=== PATIENT | female | born 1945 | race Caucasian/White ===

== ENCOUNTER → 2017-06-12 | Outpatient (CLI) | payer OTHER ==
[~2017-06-12] MED LIST: AMLODIPINE5 MG PO; ELIMITE5% T; GLIPIZIDE5 MG PO; LIPITOR40 MG PO; NAPROSYN500 MG PO; NICODERM14 MG/24 H T; REGLAN5 MG PO; WELLBUTRIN XL300 MG PO; WELLBUTRIN75 MG PO; [UNRECOGNIZED DRUG - OTHER] T
== END | disposition home or self-care (01) ==
LOC: CT 12:32
DX: J44.9 Chronic obstructive pulmonary disease, unspecified (principal); J43.8 Other emphysema; J84.10 Pulmonary fibrosis, unspecified; I70.8 Atherosclerosis of other arteries; I25.10 Atherosclerotic heart disease of native coronary artery without angina pectoris

== ENCOUNTER → 2017-09-09 | Outpatient (CLI) | payer OTHER ==
[2017-09-09 09:47] LABS: BASO # 0.1 10*3/uL (0.0-0.1); BASO % 1.1 % (0.0-1.0); EOS # 0.9 10*3/uL (0.0-0.4); EOS % 7.7 % (1.0-4.0); HEMATOCRIT 49.4 % (37.0-47.0); HEMOGLOBIN 16.9 g/dl (12.0-16.0); LYMPH # 2.8 10*3/uL (1.3-4.4); LYMPH % 24.9 % (27.0-41.0); MEAN CELL VOLUME 93.6 fl (81.0-99.0); MEAN CORPUSCULAR HGB CONC 34.2 g/dl (33.0-37.0); MEAN PLATELET VOLUME 9.9 fl (9.6-12.3); MONO # 0.4 10*3/uL (0.1-1.0); MONO % 3.4 % (3.0-9.0); NEUT % 62.5 % (47.0-73.0); PLATELET COUNT AUTOMATED 287 10*3/uL (130-400); RED BLOOD COUNT 5.28 10*6/uL (4.10-5.10); RED CELL DISTRI WIDTH 13.3 % (0-14.5); WHITE BLOOD COUNT 11.2 10*3/uL (4.8-10.8)
[2017-09-09 10:25] LABS: ALBUMIN 3.5 gm/dl (3.1-4.5); CREATININE 1.42 mg/dL (0.55-1.02); THYROXINE (T4) TOTAL 7.7 ug/dl (4.8-13.9)
[2017-09-09 10:28] LABS: THYROID STIM HORMONE (HS) 3.69 uIU/ml (0.358-4.75)
== END | disposition home or self-care (01) ==
LOC: LAB 09:20
PROVIDERS: Neuromusculoskeletal Medicine & OMM
DX: I10 Essential (primary) hypertension (principal); E11.9 Type 2 diabetes mellitus without complications; E55.9 Vitamin D deficiency, unspecified; E78.5 Hyperlipidemia, unspecified

== ENCOUNTER 2017-09-21 19:45 | Inpatient (IN) | payer OTHER ==
[~2017-09-21] VITALS: Ht 157.5 cm; Wt 63.6 kg
--- NOTE | ~2017-09-21 | EKG ---
[place], [place] ELECTROCARDIOGRAM REPORT NAME: JOCY CONTE UNIT #: [id number] ROOM: 507 DOCTOR: SOO IGLL MD,JULIETA BIRTHDATE: [birth year] DOS: 09/21/2017 The electrocardiogram done at 8:19 p.m. Normal sinus rhythm noted. Heart rate 89 beats per minute. PVCs were noted. Nonspecific ST-T changes. JULIETA VANN MD CM:EKGRPT:ELECTROCARDIOGRAM REPORT [id number] JULIETA GILL MD
--- NOTE | ~2017-09-21 | PR ---
[place], [place] PROGRESS NOTE NAME: JOCY CONTE UNIT #: [id number] ROOM: 507 DOCTOR: SOO GILL MD,JULIETA BIRTHDATE: [birth year] DOS: 09/23/2017 SUBJECTIVE: The patient was noted comfortable at this time with reduction in symptoms of shortness of breath reported. The coughing has been subsiding. There were no symptoms of chest pain or any abdominal pain. OBJECTIVE: VITAL SIGNS: For the patient which were recorded showed normal temperature, respiratory rate 20, heart rate of 103, blood pressure 134/73. Pulse oxygen saturation of the patient recorded on 6 liters nasal canula 92% saturation. HEENT: Examination shows head was atraumatic. Eyes nonicterus. NECK: Supple. CARDIOVASCULAR: S1, S2 audible. LUNGS: Noted with inspiratory crackles noted in the lungs previously. There was no wheezing heard. Breaths are noted mild to moderately decreased. ABDOMEN: Soft, nontender. IMPRESSION: 1. The patient with acute respiratory failure, superimposed with chronic hypoxic respiratory failure, still requiring oxygen supplementation up to 6 liters nasal cannula. 2. Suspicion of UIP. 3. Type 2 diabetes mellitus. PLAN OF MANAGEMENT: Continuation of bronchodilators, oxygen supplementation. Titrate oxygen to maintain a pulse oxygen saturation 92% or greater. Other supportive therapy, plan of management care. JULIETA VANN MD CM:PNTRANS [id number] JULIETA GILL MD 09/23/17 1444 interface
--- NOTE | ~2017-09-21 | PR ---
[place], [place] PROGRESS NOTE NAME: JOCY CONTE UNIT #: [id number] ROOM: 507 DOCTOR: JULIETA MESSER MD BIRTHDATE: [birth year] DOS: 09/24/2017 SUBJECTIVE: The patient was noted comfortable at this time without any acute distress at this time. She has been sitting on the bed, using oxygen supplementation with the nasal cannula for the patient, 5 or 6 liter nasal cannula at rest. She has not been reported any symptoms of hemoptysis or any chest pain. Coughing has been subsiding. Shortness breath was resolving. OBJECTIVE: VITAL SIGNS: Normal temperature, respiratory rate 20, heart rate 85, blood pressure 148/86 recorded this morning. The pulse oxygen saturation on 5 liters nasal canula 92% saturation recorded. HEAD, EYES, EARS, NOSE, AND THROAT: Examination shows head was atraumatic. Eyes nonicterus. NECK: Supple. CARDIOVASCULAR: S1, S2 audible. LUNGS: Moderate decreased breath sounds. Crackles were noted mid to lower portion of the lungs. ABDOMEN: Soft, nontender. EXTREMITIES: Without any acute edema. LABORATORY DATA: CBC today: WBC count 16.9, hemoglobin and hematocrit normal, platelet count was normal. Blood culture, no bacterial growth from the . Final results pending. IMPRESSION: Resolving acute on chronic severe hypoxic respiratory failure. The patient with pulmonary fibrosis possibility of UIP. Possible exacerbation of chronic obstructive pulmonary disease as well. PLAN OF TREATMENT: No changes from the pulmonary standpoint. Titrate oxygen and maintain saturation 92% or greater. The patient might require reassessment for the need of oxygen could be considered for home discharge if assessed by the primary care attending. [place], [place] PROGRESS NOTE NAME: DGJOCY UNIT #: [id number] ROOM: 507 DOCTOR: JULIETA MESSER MD BIRTHDATE: [birth year] JULIETA VANN MD CM:PNTRANS [phone] JULIETA GILL MD 09/24/17 1942 interface
--- NOTE | ~2017-09-21 | CON ---
[place], [place] REPORT OF CONSULTATION [id number] UNIT #: [id number] ROOM: 507 DOCTOR: JULIETA MESSER MD BIRTHDATE: [birth year] DOS: 09/22/2017 CONSULTATION REQUESTED BY: Hospitalist service. REASON FOR CONSULTATION: For assessment of increased shortness of breath. HISTORY OF PRESENT ILLNESS: This is a 71-year-old white female patient who has been managed by a laboratory inspector in [place], [place] as well as the primary care physician as well. The patient has been noted with symptoms of having increased shortness of breath for this patient as well that has been ongoing for the past 7 days. The symptom has been noted with gradual worsening in the last few days about a week or so. The symptoms are also associated with increased coughing, which has been getting worse. The cough has been noted with yellow sputum expectoration intermittently to no sputum expectoration. She did not report any symptoms of wheezing. Denies symptoms of chest pain. There were no symptoms of hemoptysis. REVIEW OF SYSTEMS: CONSTITUTIONAL: Fatigue and tiredness reported as constitutional symptoms with fever and chills at home as well for the last 2-3 days. EYES: Denies any burning, redness, discharge or diplopia. EAR, NOSE, THROAT: Denies any earache. No nasal discharge, epistaxis, or sore throat. CARDIOVASCULAR: There were no symptoms of anginal pain for this patient reported by the patient, any palpitations or edema of the extremities. GASTROINTESTINAL: Dysphagia, nausea, vomiting, diarrhea, abdominal pain, hematemesis, melena, or hematochezia. SKIN: Denies any abnormal lesions or rashes. MUSCULOSKELETAL: Without any acute deformities reported for this patient. CENTRAL NERVOUS SYSTEM: Denies any diplopia, headache or seizures. Remaining systems were reviewed. They were noted all negative. PAST MEDICAL HISTORY: 1. Known with history of longstanding chronic respiratory failure, use of oxygen supplementation 3 liter nasal cannula. 2. History of chronic obstructive pulmonary disease. 3. History of chronic kidney disease stage 3. 4. Hyperlipidemia. 5. Essential hypertension. 6. Type 2 diabetes mellitus. 7. History of depression. PAST SURGICAL HISTORY: 1. Carpet tunnel surgery. 2. Appendectomy. 3. Hysterectomy. 4. Tonsillectomy as a child. SOCIAL HISTORY: The patient stated that she is and lives at home. [place], [place] REPORT OF CONSULTATION NAME: JOCY CONTE UNIT #: [id number] ROOM: 507 DOCTOR: SOO GILL MD,JULIETA BIRTHDATE: [birth year] has been noted with tobacco use since teenager from 1-3 packs of cigarettes per day. The 3 packs of cigarettes smoked by the patient at the time of the tobacco cessation, which were done approximately in 2007. Denies any occupation related exposure to any chemicals or dust. FAMILY HISTORY: The patient's father complication related mesothelioma. Mother from complication related to the COPD. Medication for the patient to home were noted as use of amlodipine, Wellbutrin, glipizide and Elimite. DRUG ALLERGIES: RED DYE AND METALS. PHYSICAL EXAMINATION: GENERAL: This is a 71-year-old female who has been currently sitting on the bed for this patient using oxygen supplementation with a Venturi mask for this patient of 50% to maintain normal oxygen saturation 92% or greater. The patient was noted without any major distress except mild tachypnea at rest. VITAL SIGNS: Height were recorded on current admission with height of 5 feet 2 inches, weight of 140 pounds, BMI 25.6. Vital signs for the patient, which was recorded for the patient shows normal temperature. Respiration 18-22. Heart rate of 106-97. The blood pressure 128/84-133/85. Pulse oxygen saturation on admission recorded in the Emergency Room, the patient on 3 liter nasal cannula use of oxygen 75% later on placed on 100% nonrebreather mask to maintain saturation 97%. The oxygen supplementation with Venturi mask for the patient was noted as on 50% oxygen at this time as 95% saturation at rest. HEENT: Mild obesity. Head was atraumatic. Eyes nonicterus. Oral mucosa was noted a dry. Head was atraumatic. NECK: Supple. CARDIOVASCULAR: S1, S2 is audible. LUNGS: Showed noted with moderate reduction of breath sounds bilaterally. Crackles were noted in the mid and lower portion of the lungs. There was no wheezing present. ABDOMEN: Noted soft with moderate obesity. Bowel sounds present without tenderness. SKIN: Noted without any lesions or rashes. MUSCULOSKELETAL: Noted without any acute deformities. VISIBLE SKIN: No lesions or rashes. CENTRAL NERVOUS SYSTEM: Cranial nerves 2-12 intact. MUSCULOSKELETAL: Without any acute deformities. LABORATORY DATA: CBC for the patient that was done for the patient yesterday on admission, WBC count of 18.8, hemoglobin 15.3, hematocrit normal, platelet count normal. The lactic acid yesterday on admission 1.8. PT/PTT yesterday on admission normal. CMP yesterday on admission, BUN 22, creatinine 1.46. Potassium 3.4, sodium 135, total bilirubin 1.2 with normal remaining LFTs. Arterial blood gas that was just done yesterday evening, pH of 7.45, pCO2 of 30, pO2 of 55.5 on 100% nonrebreather mask. The arterial blood gas repeated again for the patient 09/21/2017, pH of 7.42, pCO2 of 31. pO2 of 87.0 on 50% Venturi mask. CMP of the patient of this morning, glucose 209, BUN 20, creatinine 1.33. CO2 of 20. The bilirubin was normal. Albumin of 2.7. CBC of this morning, WBC count 14.1, hemoglobin and hematocrit normal, platelet count normal with 97% [place], [place] REPORT OF CONSULTATION NAME: JOCY CONTE UNIT #: [id number] ROOM: 507 DOCTOR: [facility] BIRTH[facility]: [birth year] segmented neutrophils. Chest x-ray of the patient that was done yesterday, one view was reviewed for the patient shows evidence of interstitial pulmonary fibrotic changes noted in the lungs diffusely. CT scan of the chest for the patient has been done previously on 06/12/2017, was reviewed and findings were noted, combination of emphysema and strong suspicion of UIP would be considered. Paraseptal emphysema changes were also present. Some enlargement of lymph nodes would be considered in the mediastinum for the patient, but because of lack of IV contrast certainly, the finding cannot be clarified, some calcification of the lymph nodes was seen in the right hilar lymph nodes. IMPRESSION: 1. The patient was been currently admitted to the hospital noted with severe acute on chronic hypoxic respiratory failure with a history of pulmonary fibrosis and COPD. 2. Possible consideration for UIP as well. 3. History of type 2 diabetes mellitus, noted uncontrolled because of the current use of corticosteroids. 4. Superimposed infection cannot be completely excluded because of baseline pulmonary fibrotic abnormalities patient to exclude any pneumonia or other infection at the present time. PLAN OF TREATMENT: Continue the current dose of corticosteroids without any changes in the antibiotics. Oxygen supplementation to maintain a saturation of 92%, greater in case of worsening of the hypoxia certainly trial of BiPAP could be attempted. Clarify the code status for the patient as well. Continuation of the bronchodilators as previously ordered. Obtain the sputum for Gram stain and culture. All other treatment plan for the patient continued to be optimized based on the progression of the illness. Supportive plan of management and therapy. It will be interesting to get the medical record, patient from another specialist for this patient as well or other previous diagnostic workup done for the patient for this current pulmonary fibrosis. JULIETA VANN MD CM:CONSTR:REPORT OF CONSULTATION 0805 09/22/17 1276 interface
[2017-09-21 19:46] VITALS: BP 135/86
[2017-09-21 20:09] LABS: BASO # 0.1 10*3/uL (0.0-0.1); BASO % 0.6 % (0.0-1.0); EOS # 0.8 10*3/uL (0.0-0.4); EOS % 4.2 % (1.0-4.0); HEMATOCRIT 44.9 % (37.0-47.0); HEMOGLOBIN 15.3 g/dl (12.0-16.0); LYMPH % 21.2 % (27.0-41.0); MEAN CELL VOLUME 92.4 fl (81.0-99.0); MEAN CORPUSCULAR HGB 31.5 pg (27.0-31.0); MEAN CORPUSCULAR HGB CONC 34.1 g/dl (33.0-37.0); MEAN PLATELET VOLUME 10.2 fl (9.6-12.3); MONO # 0.9 10*3/uL (0.1-1.0); MONO % 4.6 % (3.0-9.0); PLATELET COUNT AUTOMATED 281 10*3/uL (130-400); RED BLOOD COUNT 4.86 10*6/uL (4.10-5.10); RED CELL DISTRI WIDTH 12.7 % (0-14.5); WHITE BLOOD COUNT 18.8 10*3/uL (4.8-10.8)
[2017-09-21 20:20] VITALS: BP 126/78
[2017-09-21 20:22] LABS: ACT PARTIAL THROMBO TIME 25.4 SECONDS (20.8-31.5); INTERNATIONAL NORM RATIO 1.1 (2.0-3.5)
[2017-09-21 20:26] LABS: ALBUMIN 3.2 gm/dl (3.1-4.5); ALKALINE PHOSPHATASE 89 U/L (45-117); BUN 22 mg/dl (7-24); CHLORIDE 100 mmol/L (98-107); CREATININE 1.46 mg/dL (0.55-1.02); LIPASE 188 U/L (73-393); POTASSIUM 3.4 mmol/L (3.5-5.1); SGOT/AST 22 IU/L (3-35); SGPT/ALT 18 U/L (12-78); SODIUM 135 mmol/L (136-145)
[2017-09-21 20:27] LABS: TROPONIN I < 0.015 ng/ml (<0.045)
[2017-09-21 20:47] VITALS: BP 125/77
[2017-09-21 20:49] LABS: ABG BASE EXCESS -1.4 mmol/L (-2.0-2.0); ABG HCO3 21.1 mmol/l (22-26); ABG O2 SATURATION 92.1 % (95-97); ARTERIAL BLOOD GAS PCO2 30.1 mmHg (35-45); ARTERIAL BLOOD GAS PH 7.458 (7.35-7.45); ARTERIAL BLOOD GAS PO2 55.5 mmHg (80-90)
[2017-09-21 21:22] VITALS: BP 133/85
[2017-09-21 22:56] LABS: ABG BASE EXCESS -2.9 mmol/L (-2.0-2.0); ABG HCO3 20.2 mmol/l (22-26); ABG O2 SATURATION 97.2 % (95-97); ARTERIAL BLOOD GAS PCO2 31.2 mmHg (35-45); ARTERIAL BLOOD GAS PH 7.425 (7.35-7.45)
[2017-09-21 23:02] VITALS: BP 138/82
[2017-09-21] MEDS ORDERED: SIMVASTATIN40 MG PO (23:42)
[2017-09-21] MEDS ORDERED: SYMB160 INH (23:42)
[2017-09-21] MEDS ORDERED: SPIRIVA RESPIMAT4 GM INH (23:42)
[2017-09-21] MEDS ORDERED: ONE DAILY1 EACH PO (23:43)
[2017-09-21] MEDS ORDERED: B12100 MC1 PO (23:43)
[2017-09-21] MEDS ORDERED: VITAMIN E100 UNI1 PO (23:44)
[2017-09-21] MEDS ORDERED: VITAMIN D31000 UNI1 PO (23:44)
[2017-09-21] MEDS ORDERED: TURMERIC538 MG PO (23:45)
[2017-09-21] MEDS ORDERED: PROVENTIL HFA6.7 GM INH (23:46)
[2017-09-22] MEDS ORDERED: VENTOLIN HFA INH (01:27)
[2017-09-22 07:05] LABS: HEMATOCRIT 39.3 % (37.0-47.0); HEMOGLOBIN 13.8 g/dl (12.0-16.0); MEAN CELL VOLUME 91.4 fl (81.0-99.0); MEAN CORPUSCULAR HGB 32.1 pg (27.0-31.0); MEAN CORPUSCULAR HGB CONC 35.1 g/dl (33.0-37.0); PLATELET COUNT AUTOMATED 251 10*3/uL (130-400); RED CELL DISTRI WIDTH 12.6 % (0-14.5); WHITE BLOOD COUNT 14.1 10*3/uL (4.8-10.8)
[2017-09-22 07:21] LABS: ALBUMIN 2.7 gm/dl (3.1-4.5); CREATININE 1.33 mg/dL (0.55-1.02); PHOSPHOROUS 2.5 mg/dL (2.5-4.9); POTASSIUM 3.8 mmol/L (3.5-5.1); TOTAL PROTEIN 8.1 gm/dL (6.4-8.2)
[2017-09-22 07:37] LABS: THYROID STIM HORMONE (HS) 0.565 uIU/ml (0.358-4.75)
[2017-09-22 07:38] LABS: PLATELET SUFFICIENCY NORMAL (NORMAL); TOTAL CELLS COUNTED 100 #CELLS
[2017-09-22 08:00] VITALS: BP 128/84
[2017-09-22 08:28] LABS: VITAMIN D, 25-HYDROXY 17.4 ng/mL (30-100)
[2017-09-22] MEDS ORDERED: BUPROPION HCL150 M2 PO (10:10)
[2017-09-22] MEDS ORDERED: MEGARED OMEGA-1 EAC1 PO (10:11)
[2017-09-22] MEDS ORDERED: TURMERIC 500 M1 EACH PO (10:12)
[2017-09-22] MEDS ORDERED: VITAMIN B121000 MC1 PO (10:13)
[2017-09-22] MEDS ORDERED: POTASSIUM99 M5 PO (10:14)
[2017-09-22] MEDS ORDERED: VITAMIN E1000 UNI1 PO (10:14)
[2017-09-22 12:00] VITALS: BP 135/80
[2017-09-22 16:06] VITALS: BP 128/76
[2017-09-22 20:24] VITALS: BP 137/89
[2017-09-23] VITALS: BP 131/60
[2017-09-23 06:17] LABS: CREATININE 1.33 mg/dL (0.55-1.02); POTASSIUM 4.2 mmol/L (3.5-5.1)
[2017-09-23 06:22] LABS: BASO % 0.2 % (0.0-1.0); HEMATOCRIT 37.4 % (37.0-47.0); HEMOGLOBIN 12.3 g/dl (12.0-16.0); LYMPH # 1.1 10*3/uL (1.3-4.4); LYMPH % 5.9 % (27.0-41.0); MEAN CORPUSCULAR HGB 31.1 pg (27.0-31.0); MEAN CORPUSCULAR HGB CONC 32.9 g/dl (33.0-37.0); MEAN PLATELET VOLUME 10.3 fl (9.6-12.3); MONO # 0.6 10*3/uL (0.1-1.0); MONO % 3.2 % (3.0-9.0); NEUT % 89.9 % (47.0-73.0); PLATELET COUNT AUTOMATED 274 10*3/uL (130-400); RED BLOOD COUNT 3.95 10*6/uL (4.10-5.10); RED CELL DISTRI WIDTH 12.8 % (0-14.5); WHITE BLOOD COUNT 17.8 10*3/uL (4.8-10.8)
[2017-09-23 06:32] LABS: MEAN CELL VOLUME 94.7 fl (81.0-99.0)
[2017-09-23 08:00] VITALS: BP 134/73
[2017-09-23 12:00] VITALS: BP 137/87
[2017-09-23 16:00] VITALS: BP 130/77
[2017-09-23 20:00] VITALS: BP 120/73
[2017-09-24] VITALS: BP 135/74
[2017-09-24 06:47] LABS: HEMATOCRIT 38.2 % (37.0-47.0); HEMOGLOBIN 13.1 g/dl (12.0-16.0); MEAN CELL VOLUME 93.2 fl (81.0-99.0); MEAN CORPUSCULAR HGB CONC 34.3 g/dl (33.0-37.0); MEAN PLATELET VOLUME 10.1 fl (9.6-12.3); PLATELET COUNT AUTOMATED 285 10*3/uL (130-400); RED CELL DISTRI WIDTH 12.9 % (0-14.5); WHITE BLOOD COUNT 16.9 10*3/uL (4.8-10.8)
[2017-09-24 07:11] LABS: PLATELET SUFFICIENCY NORMAL (NORMAL); ROULEAUX SLIGHT; TOTAL CELLS COUNTED 100 #CELLS
[2017-09-24 08:00] VITALS: BP 148/86
[2017-09-24] MEDS ORDERED: PREDNISONE10 MG PO (11:47)
[2017-09-24] MEDS ORDERED: BENZONATATE100 M1 PO (11:47)
[2017-09-24] MEDS ORDERED: LEVAQUIN250 M1 PO (11:47)
[2017-09-24 12:00] VITALS: BP 132/84
== END 2017-09-24 15:23 | disposition home or self-care (01) | DRG 871 ==
LOC: ED 19:45 → 5E 22:13 → EDHOLD 22:13 → 5E 22:32
PROVIDERS: Internal Medicine; Internal Medicine Hospice and Palliative Medicine; Nurse Practitioner Family
DX: A41.9 Sepsis, unspecified organism (principal); J18.9 Pneumonia, unspecified organism; J96.21 Acute and chronic respiratory failure with hypoxia; E43 Unspecified severe protein-calorie malnutrition; E11.65 Type 2 diabetes mellitus with hyperglycemia; E11.22 Type 2 diabetes mellitus with diabetic chronic kidney disease; E67.8 Other specified hyperalimentation; J84.10 Pulmonary fibrosis, unspecified; J44.1 Chronic obstructive pulmonary disease with (acute) exacerbation; E87.1 Hypo-osmolality and hyponatremia; J44.0 Chronic obstructive pulmonary disease with (acute) lower respiratory infection; N18.3 Chronic kidney disease, stage 3 (moderate); E87.6 Hypokalemia; F32.9 Major depressive disorder, single episode, unspecified; E78.5 Hyperlipidemia, unspecified; I12.9 Hypertensive chronic kidney disease with stage 1 through stage 4 chronic kidney disease, or unspecified chronic kidney disease; Z91.041 Radiographic dye allergy status; Z91.09 Other allergy status, other than to drugs and biological substances; Z79.899 Other long term (current) drug therapy; Z90.49 Acquired absence of other specified parts of digestive tract; Z90.710 Acquired absence of both cervix and uterus; Z87.891 Personal history of nicotine dependence; Z80.8 Family history of malignant neoplasm of other organs or systems; Z82.5 Family history of asthma and other chronic lower respiratory diseases; Z68.25 Body mass index [BMI] 25.0-25.9, adult

== ENCOUNTER 2018-01-24 10:16 | Inpatient (IN) | payer OTHER ==
[~2018-01-24] VITALS: Ht 157.5 cm; Wt 66.7 kg
--- NOTE | ~2018-01-24 | CON ---
[place], [place] REPORT OF CONSULTATION NAME: JOCY CONTE UNIT #: [id number] ROOM: [facility] DOCTOR: JULIETA MESSER MD BIRTHDATE: [birth year] DOS: 01/25/2018 PULMONARY CONSULTATION, EVALUATION AND MANAGEMENT REASON FOR CONSULTATION: Assess the patient's current hypertension, respiratory distress with acute respiratory failure and other symptoms. HISTORY OF PRESENT ILLNESS: A 72-year-old female with longstanding history of advanced chronic hypoxic respiratory failure secondary to interstitial pulmonary fibrosis with history of COPD. The patient presented to the hospital. The patient has been noted to have significant difficulty urination, excessive pressure and pain in the suprapubic area on presentation. The patient stated symptoms have been noted gradually worsen. She was admitted on the telemetry floor. This morning, the patient developed hypotension with increased shortness of breath, requiring transfer to the Intensive Care Unit. She was noted the blood pressure systolic quite low. She had been given already 2 liters of intravenous fluids. The patient has been ordered the BiPAP that has been used by the patient. She was also noted with acute chronic intubation on this hospitalization. This afternoon, the patient was seen in the Intensive Care Unit. She has been noted to be awake and alert, able to do a good conversation. The patient understands the questions very well. She does have symptoms of shortness of breath, which has been noted better with current use of the BiPAP. Denies any significant cough or sputum expectoration. Denies symptoms of wheezing or any chest pain. Denies symptoms of hemoptysis. REVIEW OF SYSTEMS: GENERAL: General weak and fatigue reported without any symptoms of fever. She has abnormal weight loss. EYES: Denies burning, redness, or tenderness. EARS, NOSE, AND THROAT SYMPTOMS: Denies sore throat, hoarseness, otalgia, postnasal drainage, epistaxis, sinus pressure or congestion. CARDIOVASCULAR SYSTEM: Denies angina pain, palpitation, edema of the lower extremities. GASTROINTESTINAL SYMPTOMS: Denies dysphagia, nausea, vomiting, diarrhea, hematemesis, melena, or hematochezia. Noted suprapubic pain seemed to be better at this time. GENITOURINARY SYMPTOMS: The patient was noted with urinary retention, dribbling of the urine and overflow. Currently, has a Caldwell catheter in place. There were no symptoms of hematuria or flank pain. SKIN: Denies abnormal lesions or rashes. CENTRAL NERVOUS SYSTEM: General weakness and fatigue were noted without any tingling sensation of extremities or seizures. MUSCULOSKELETAL SYSTEM: The patient denies any joint pain, redness, tenderness or any deformities. Remaining systems were reviewed. They were noted all negative. PAST MEDICAL HISTORY: 1. The patient has longstanding history of chronic hypoxic respiratory failure, use of oxygen supplementation 7 liters at rest. The patient is on about 8-9 [place], [place] REPORT OF CONSULTATION NAME: JOCY CONTE UNIT #: [id number] ROOM: [facility] DOCTOR: JULIETA MESSER MD BIRTHDATE: [birth year] liters per with exertion on walking from the bathroom to the bedroom. 2. Interstitial pulmonary fibrosis, which are nonspecific. 3. COPD. 4. Chronic kidney disease, stage 3, known. 5. Hyperlipidemia. 6. Essential hypertension. 7. Type 2 diabetes mellitus. 8. History of depression. PAST SURGICAL HISTORY: 1. Carpal tunnel release. 2. Appendectomy. 3. Hysterectomy. 4. Tonsillectomy as a child. SOCIAL HISTORY: The patient is and lives at home, noted up to 3 packs of cigarettes per day in the past, the patient started in the early teens until 2007. She does not have any known inhalation to any dust or chemical at work or at home. FAMILY HISTORY: The patient's father with complication of mesothelioma. Mother of complication related to COPD. CURRENT MEDICATIONS: Administered noted as use of aspirin, Mucinex, nitroglycerin, therapeutic Lovenox, nitroglycerin, Protonix, DuoNeb, Rocephin, Zithromax and others. DRUG ALLERGY HISTORY: THE PATIENT NOTED ALLERGIC TO METALS AND RED DYE. PHYSICAL EXAMINATION: GENERAL: A 72-year-old female was noted currently awake and alert without any acute distress. VITAL SIGNS: BiPAP setting of 16/10 with a 70% oxygen. Pulse ox saturation noted at bedside 98-99% saturation. HEENT: Head was atraumatic. Eye nonicterus. NECK: Supple. CARDIOVASCULAR: S1, S2 is audible. LUNGS: The patient was noted with decreased breath sounds, scattered crackles, no wheezing. ABDOMEN: Soft, flat, nontender. Bowel sounds present. CENTRAL NERVOUS SYSTEM: At this time, no gross focal deficit. The patient is moving on wheel. SKIN: No lesions or rashes. MUSCULOSKELETAL: Without any acute deformities. LABS DONE: CBC done on admission of 01/24/2018; hemoglobin 16.7, hematocrit 53.2, WBC count normal, platelet count normal. The lactic acid noted 2.9 on admission. INR 1.5 and PT, PTT noted normal. CMP of 01/24/2018; BUN 30, creatinine 2.02. Glucose 113. Total bilirubin 1.5. Arterial blood gas yesterday; pH of 7.42, pCO2 26, pO2 58.9 on 5 liters nasal cannula at rest. [place], [place] REPORT OF CONSULTATION NAME: JOCY CONTE UNIT #: [id number] ROOM: [facility] DOCTOR[facility] B[facility]: [birth year] Urinalysis completed yesterday noted with random sodium of 28, chloride of less than 10. The lactic acid of 3.1 and later on that I ordered repeated, this morning was 4.9. Troponin for the patient were noted as normal this morning. Urine culture, no bacterial growth from 01/24/2018. Urinalysis for the patient that was done yesterday was noted with positive nitrites, leukocyte esterase 1+ and 2+ bacteria. The troponin second set was pending. The CMP of the patient repeated after transfer to the Intensive Care Unit shows BUN 33, creatinine 2.29, glucose 110. Carbon dioxide 20. D-dimer was 3.97 this morning. Arterial blood gas of the patient that was repeated on the BiPAP of 70%; pH of 7.28, pCO2 26, pO2 128. Arterial blood gas earlier at the time of respiratory distress; pH of 7.29, pCO2 of 23, pO2 156 on 100% oxygen. The chest x-ray that was done on 01/25/2018 shows evidence of pulmonary fibrotic changes. The CT scan of the chest that was done of the abdomen and pelvis yesterday reported by the radiologist with findings of hepatic cirrhosis, small amount of abdominal and pelvic ascites. Small abdominal aortic aneurysm noted with the dimension of 3.4 cm in the infrarenal area. Colonic diverticulosis noted. The lower portion of the lungs, which I personally reviewed shows evidence of subpleural honeycombing with interstitial infiltration. There was no pleural effusion. IMPRESSION: 1. The patient who has been currently admitted to the hospital noted with acute urinary tract infection with sepsis is likely cause of current deterioration. 2. The patient with acute on chronic hypoxic respiratory failure secondary to above. 3. Severe metabolic acidosis secondary to sepsis with elevation of creatinine. 4. History of chronic kidney disease. 5. Interstitial pulmonary fibrosis would be a considered finding at least in the lower portion of the thorax consistent with possible consideration of usual interstitial pneumonitis. 6. The patient with elevation of D-dimer, which could be multifactorial including related from the sepsis and also from acute kidney injury would be very likely. 7. Chronic obstructive pulmonary disease was also known previously, but does not seem to have an acute exacerbation at the present time. PLAN OF MANAGEMENT: The patient has been ordered the V/Q scan at this time that was canceled because of the patient's current instability and with underlying pulmonary fibrosis, which would not yield any good information. If the diagnosis of pulmonary embolism is highly suspected by the primary care attending, the patient could be started on unfractionated therapeutic heparin rather than the Lovenox should be a drug of choice. Ultrasound of the lower extremity will be done to exclude any deep venous thrombosis. If that would be noted negative, I would not consider further assessment for the pulmonary embolism at the present time. Avoid any excessive fluid overload to prevent the fluid overload with recurrent resuscitation. Use of the vasopressor if agreed upon by the family member could be given for the management of hypotension to maintain a mean arterial pressure of 65 or greater. Monitor lactic acid for the patient with repeat lactic acid in 4 hours. The oxygen supplementation has been decreased to 50%. The patient's code status has been noted a DNR, arrest and no intubation or resuscitation as addressed with the family members by the other [place], [place] REPORT OF CONSULTATION NAME: JOCY CONTE UNIT #: [id number] ROOM: [facility] DOCTOR: JULIETA MESSER MD BIRTHDATE: [birth year] attendings. Follow the code management for this patient with changes in the medical management accordingly. Overall, prognosis remains guarded at this time. Monitor culture results of the blood and urine. Supportive therapy, plan of management, other care plan. Total time for pulmonary critical care evaluation and management for the patient today was 39 minutes. JULIETA VANN MD CM:CONSTR:REPORT OF CONSULTATION 1528 01/26/18 0053 interface
--- NOTE | ~2018-01-24 | EKG ---
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15 : 1945 Requested By: YOUSUF ROSS Order Number: [id number] Reading MD: Desiree Negron MD Measurements Intervals Bruno Rate: 96 P: 62 CT: 159 QRS: 145 QRSD: 73 T: -12 QT: 424 QTc: 536 Interpretive Statements Sinus rhythm Right axis deviation Low voltage, precordial leads Consider anterior infarct Borderline T abnormalities, inferior leads Prolonged QT interval Compared to ECG 01/24/2018 10:44:36 Right-axis deviation now present Low QRS voltage now present Left posterior fascicular block no longer present Myocardial infarct finding still present T-wave abnormality still present milk Electronically Signed On 01-26-2018 11:10:58 PDT by Desiree Negron MD CM:EKGRPT:ELECTROCARDIOGRAM REPORT 1110 1110 YOUSUF YOU DRAFT REPORT YOUSUF ROSS DO
--- NOTE | ~2018-01-24 | PR ---
[place], [place] PROGRESS NOTE NAME: JOCY CONTE UNIT #: [id number] ROOM: 424 DOCTOR: DOMINGA PAYANMYRIAM Cassandra BIRTHDATE: [birth year] DOS: NEPHROLOGY FOLLOWUP NOTE SUBJECTIVE: The patient remains critically ill. She seems to be declining in her status. She was on Optiflow when I saw her. She is more lethargic today. Urine output remains poor. She is oliguric and now has a positive fluid balance. It seems that there are number of discussions in regards to possible transfer to hospice. PHYSICAL EXAMINATION: VITAL SIGNS: Temperature is 98.4, pulse 93, respiration rate 15, blood pressure is 107/76. HEENT: Shows no JVD. Optiflow was in place. LUNGS: Diminished breath sounds with no wheeze. HEART: S1, S2. No rub. ABDOMEN: Soft, nontender. EXTREMITIES: Showed trace edema. SKIN: Showed no rash. DIAGNOSTIC DATA: Blood cultures to date showed no growth. Hemoglobin was 15.7, white count of 12.4, platelets of 238. BUN 39, creatinine 3.06. Sodium 141, potassium 5.6, CO2 of 14, calcium 7.5. The latest lactic acid from last night was noted to be 5.3. ASSESSMENT AND PLAN: 1. Acute on chronic kidney disease with a baseline creatinine in the low to middle ones range. This seems most consistent with a prerenal/acute tubular necrosis like picture due to septic process/transient hypotension. The patient's creatinine is up. Her urine output is marginal. She is now having some electrolyte abnormalities including hyperkalemia. Her acidosis is worsening. No lactate was drawn today, but I suspect it will be higher. The patient may very likely require dialysis. It is too early to tell, but it seems she is heading in that direction. Goals of care are being addressed presently. If full support is to continue, would suggest the patient be transferred to a tertiary care center. She probably will need intubation and CRRT. I think hospice is a good option for her and her family to consider with her acute on chronic illnesses. 2. Respiratory failure. This is acute on chronic. This is being managed by Pulmonary. She is now on Optiflow. Fluids have been stopped. 3. Metabolic acidosis. The patient has been stopped on fluids. We will give 1 amp of bicarbonate. She has an elevated lactic acid level. If full support is to continue, as mentioned, she likely will require renal replacement therapy. 4. Urinary tract infection, on antibiotics. 5. History of diabetes mellitus, on insulin. 6. Hypotension. Blood pressures are borderline. She currently is not on pressors. As mentioned, the patient is being considered now for hospice, which I agree. If there is a change of heart and full support is to continue, I would recommend [place], [place] PROGRESS NOTE NAME: JOCY CONTE UNIT #: [id number] ROOM: [facility] DOCTOR: DOMINGA PAYAN,MYRIAM Trujillo BIRTHDATE: [birth year] transfer to a tertiary care center. MYRIAM ORR MD CM:PNTRANS [id number] MYRIAM ORR MD 01/26/182143 interface
--- NOTE | ~2018-01-24 | PR ---
[place], [place] PROGRESS NOTE NAME: JOCY CONTE UNIT #: [id number] ROOM: [facility] DOCTOR: DOMINGA PAYAN,MYRIAM Trujillo BIRTHDATE: [birth year] DOS: 01/25/2018 ADDENDUM I did note she is receiving Lovenox in the setting of acute kidney injury. We would recommend discontinuing Lovenox. If anticoagulation is to continue, IV heparin would be the drug of choice. MYRIAM ORR MD CM:PNTRANS [id number] MYRIAM ORR MD 01/26/18 0237 interface
--- NOTE | ~2018-01-24 | PR ---
[place], [place] PROGRESS NOTE NAME: DGJOCY HOBSON UNIT #: [id number] ROOM: 424 DOCTOR: JULIETA MESSER MD BIRTHDATE: [birth year] DOS: 01/27/2018 PULMONARY PROGRESS NOTE SUBJECTIVE: The patient was noted comfortable at this time, resting at this time. Oxygen supplementation was continued with the Optiflow of oxygen supplementation. She has not been noted any ongoing acute complaints at the present time. The patient's code status has been made to comfort care without any invasive procedure to be done at the present time. The patient was transferred to telemetry floor. OBJECTIVE: VITAL SIGNS: For the patient which are recorded showed normal temperature, respiratory rate 16, heart rate 95, blood pressure 130/90. Pulse ox saturation on 12 liter nasal cannula was 94% saturation, 80% Optiflow 95% saturation. HEENT: Head was atraumatic. Eyes nonicterus. CARDIOVASCULAR: S1, S2 audible. LUNGS: Crackles in the lungs, which were noted chronic. ABDOMEN: Soft, nontender. EXTREMITIES: Without acute edema. LABORATORY DATA: BMP today: BUN 52, creatinine 4.9, potassium 5.7. CBC: WBC count 12.5, hemoglobin 16.2, hematocrit 55.9. IMPRESSION: 1. The patient with persistent acute on chronic hypoxic respiratory failure. 2. Pulmonary fibrosis. 3. Progressive acute kidney injury. 4. Polycythemia secondary to chronic hypoxia. PLAN OF MANAGEMENT: No change in pulmonary standpoint. Continue current therapy, plan of management as in progress. Usual care, other therapy, plan of management and treatments. The patient has been currently assessed for possibility of hospice, care might be initiated today. [place], [place] PROGRESS NOTE NAME: JOCY CONTE UNIT #: [id number] ROOM: 424 DOCTOR: JULIETA MESSER MD BIRTHDATE: [birth year] JULIETA VANN MD CM:PNTRANS [id number] JULIETA GILL MD 01/27/18 1520 interface
--- NOTE | ~2018-01-24 | CON ---
[place], [place] REPORT OF CONSULTATION NAME: JOCY CONTE UNIT #: [id number] ROOM: [facility] DOCTOR: MYRIAM ORR MD BIRTHDATE: [birth year] DOS: 01/25/2018 REASON FOR CONSULTATION: Acute on chronic kidney disease. HISTORY OF PRESENT ILLNESS: A 72-year-old female with past medical history of hypertension, diabetes, what appears to be mild chronic kidney disease. She appears to have underlying COPD as well. She came to the hospital with increasing shortness of breath. Apparently, she uses high flow oxygen at home. When she came in, her chest x-ray showed no acute findings. There was a question of septic process. It seems she has been started on antibiotics. Apparently, a rapid response was called overnight and she was transferred to the ICU. When I saw her, she was on BiPAP. Her creatinine this morning was 2.3. It seems she had a renal ultrasound this morning, which showed no evidence of hydronephrosis. The patient had a mild elevation of her lactic acid on arrival as well. She did have a CT scan without contrast. This was performed of the abdomen and pelvis, which showed no acute process. It did note hepatic cirrhosis. The patient has what appears to be urinary tract infection. She is on antibiotics. Looking at the records, it appears she has had underlying chronic kidney disease, although her true baseline creatinine is not clear. 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 I did note creatinine levels from earlier this year showed creatinines in the 1.3-1.5 range. In 2012, she had a creatinine level of 1.7. She stated to me. She has always been told she has little slow kidney function. She does have a Caldwell catheter in place and has some concentrated scant-appearing urine. She currently is receiving IV fluids. The patient's blood pressures have been somewhat marginal with systolics in the 100s. She was awake, on BiPAP when I saw her. She appears to be feeling a little bit better, but remains critically ill. ALLERGIES: LISTED TO METALS AND RED DYE. MEDICATIONS: Aspirin, Lovenox, nitroglycerin, Protonix, albuterol, insulin, ceftriaxone, Zithromax. PAST MEDICAL HISTORY: 1. Chronic kidney disease as stated above. 2. COPD. 3. Depression. 4. Diabetes. 5. Hyperlipidemia. 6. Hypertension. 7. Vitamin D deficiency. 8. Carpal tunnel surgery. 9. Appendectomy. 10. Hysterectomy. 11. Tonsillectomy. FAMILY HISTORY: No reported history of chronic kidney disease, otherwise noncontributory. SOCIAL HISTORY: No alcohol or illicit drugs. She has a history of tobacco [place], [place] REPORT OF CONSULTATION NAME: JOCY CONTE UNIT #: [id number] ROOM: [facility] DOCTOR: MYRIAM ORR MD BIRTHDATE: [birth year] abuse, but quit. REVIEW OF SYSTEMS: As per HPI, otherwise, a 10-point review of systems was reviewed and was negative. PHYSICAL EXAMINATION: VITAL SIGNS: Temperature 96.8, pulse 83, respiration rate 18, blood pressure 100/40. GENERAL: She is awake, critically on BiPAP, and in mild distress. HEENT: Shows no appreciable JVD. Sclerae are anicteric. BiPAP mask is in place. NECK: Supple. Trachea is midline. There is no neck lymphadenopathy or thyromegaly. LUNGS: Diminished breath sounds with no wheezes, not using accessory muscles of respiration. HEART: S1, S2. No rub, thrill or gallop. ABDOMEN: Soft, nontender. There is no organomegaly or rigidity, rebound or guarding. There is no CVA tenderness. EXTREMITIES: No edema. There is no lower extremity lymphadenopathy. Distal pulses are 2+. SKIN: Showed no overt rash. There is no petechia or purpura. Skin temperature was warm. NEUROLOGIC: She was awake. She was alert and following commands. Cranial nerves were intact. LABORATORY DATA: Hemoglobin 17, white count 11.3, platelets 230. BUN 33, creatinine 2.3, sodium 140, potassium 5.0, CO2 of 20, calcium 8.8, albumin 3.6. IMPRESSION: 1. Acute on chronic kidney disease, baseline creatinine appears to be in the low to middle 1's range. Etiology is most consistent with a prerenal/acute tubular necrosis like picture due to a probable septic process/transient hypotension. 2. Respiratory failure, acute on chronic. The patient appears to have underlying chronic obstructive pulmonary disease. 3. Urinary tract infection. 4. Polycythemia. 5. History of diabetes mellitus. 6. History of hypertension with no hypotension. PLAN: 1. Gentle hydration for now. Would decrease the fluids to 50 mL per hour. 2. Dose meds for current creatinine clearance. 3. Antibiotics as per the primary service. 4. Avoid further ischemia. Start pressors if needed. Currently, there is no need for dialysis. 5. We will continue to monitor her progress and creatinine trends, watch her volume status carefully. Thank you for this consultation. We will follow with you. [place], [place] REPORT OF CONSULTATION NAME: DGJOCY GRANADO UNIT #: [id number] ROOM: [facility] DOCTOR: DOMINGA PAYAN,MYRIAM Trujillo BIRTHDATE: [birth year] ADDENDUM I did note she is receiving Lovenox in the setting of acute kidney injury. We would recommend discontinuing Lovenox. If anticoagulation is to continue, IV heparin would be the drug of choice. MYRIAM ORR MD CM:CONSTR:REPORT OF CONSULTATION 1353 01/26/18 0236 interface
--- NOTE | ~2018-01-24 | EKG ---
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
--- NOTE | ~2018-01-24 | PR ---
[place], [place] PROGRESS NOTE NAME: JOCY CONTE UNIT #: [id number] ROOM: [facility] DOCTOR: SOO GILL MD,JULIETA BIRTHDATE: [birth year] DOS: 01/26/2018 SUBJECTIVE: The patient was noted somewhat drowsy this morning. BiPAP was used for the patient. Currently, the patient using high flow Oxymizer oxygen supplementation with about 80% oxygen supplementation. Pulse oxygen saturation 94%. She does wake up to vocal commands. The patient has not been noted any coughing. There were no symptoms of acute shortness of breath noted, which is major at this time. She has not been reported any symptoms of abdominal pain. She has been asked for hospice service assessment by the primary care attending after discussing with the family members. OBJECTIVE: VITAL SIGNS: For the patient which are recorded showed normal temperature, respiratory rate 15, heart rate 93, blood pressure 107/76. Pulse oxygen saturation recorded on 80% oxygen 94% saturation. HEENT: Showed no new change. Dryness in the oral mucosa. CARDIOVASCULAR: S1, S2 audible. LUNGS: Noted crackles which is chronic in the lungs. ABDOMEN: Soft, nontender. Bowel sounds are present. EXTREMITIES: Without any acute edema. LABORATORY DATA: INR today was noted 2.1, which is therapeutic. BMP: BUN 39, creatinine 3.06. Potassium was 5.6, chloride of 109. CO2 of 14. Urine culture was noted to have gram-positive cocci growth. The blood culture was noted as no bacterial growth. IMPRESSION: Acute sepsis with a history of interstitial lung disease, possibly fluid overload, acute kidney injury noted progressive. Therapeutic INR was noted. PLAN OF MANAGEMENT: Continuation of the patient's current therapy, plan of management at this time. Bronchodilators. Monitor culture results of the urine. Changes of the antibiotics accordingly. Empirical use of vancomycin until the culture results will be known for the patient. The possibility of enterococcus infection would be considered. Other supportive therapy, plan of management, care plan. Heparin could be discontinued at this time. Adjustment in antibiotic has been already made. Overall prognosis for the patient is guarded. [place], [place] PROGRESS NOTE NAME: JOCY CONTE UNIT #: [id number] ROOM: [facility] DOCTOR: JULIETA MESSER MD BIRTHDATE: [birth year] JULIETA VANN MD CM:PNTRANS 1121 [id number] JULIETA GILL MD 01/26/18 1326 interface
[~2018-01-24 10:16] MED LIST changes: +B12100 MC1 PO; +BENZONATATE100 M1 PO; +BUPROPION HCL150 M2 PO; +LEVAQUIN250 M1 PO; +MEGARED OMEGA-1 EAC1 PO; +ONE DAILY1 EACH PO; +POTASSIUM99 M5 PO; +PREDNISONE10 MG PO; +PROVENTIL HFA6.7 GM INH; +SIMVASTATIN40 MG PO; +SPIRIVA RESPIMAT4 GM INH; +SYMB160 INH; +TURMERIC 500 M1 EACH PO; +TURMERIC538 MG PO; +VENTOLIN HFA INH; +VITAMIN B121000 MC1 PO; +VITAMIN D31000 UNI1 PO; +VITAMIN E100 UNI1 PO; +VITAMIN E1000 UNI1 PO
[2018-01-24 10:18] VITALS: BP 138/90
[2018-01-24 10:54] LABS: BASO # 0.1 10*3/uL (0.0-0.1); BASO % 1.3 % (0.0-1.0); EOS # 0.5 10*3/uL (0.0-0.4); EOS % 5.4 % (1.0-4.0); HEMATOCRIT 53.2 % (37.0-47.0); HEMOGLOBIN 16.7 g/dl (12.0-16.0); LYMPH # 3.9 10*3/uL (1.3-4.4); LYMPH % 39.5 % (27.0-41.0); MEAN CELL VOLUME 96.9 fl (81.0-99.0); MEAN CORPUSCULAR HGB 30.4 pg (27.0-31.0); MEAN CORPUSCULAR HGB CONC 31.4 g/dl (33.0-37.0); MEAN PLATELET VOLUME 10.2 fl (9.6-12.3); MONO # 0.3 10*3/uL (0.1-1.0); MONO % 3.4 % (3.0-9.0); NEUT % 50.2 % (47.0-73.0); NUCLEATED RED BLOOD CELL 0.2 % (0.0-0.0); PLATELET COUNT AUTOMATED 259 10*3/uL (130-400); RED BLOOD COUNT 5.49 10*6/uL (4.10-5.10); RED CELL DISTRI WIDTH 14.7 % (0-14.5); WHITE BLOOD COUNT 9.9 10*3/uL (4.8-10.8)
[2018-01-24 11:03] LABS: INTERNATIONAL NORM RATIO 1.5 (2.0-3.5)
[2018-01-24 11:10] LABS: ALBUMIN 3.8 gm/dl (3.1-4.5); CREATININE 2.02 mg/dL (0.55-1.02); POTASSIUM 4.5 mmol/L (3.5-5.1); TOTAL PROTEIN 8.1 gm/dL (6.4-8.2)
[2018-01-24 11:11] LABS: TROPONIN I 0.017 ng/ml (<0.045)
[2018-01-24 11:19] LABS: ABG HCO3 17.2 mmol/l (22-26); ARTERIAL BLOOD GAS PCO2 26.7 mmHg (35-45); ARTERIAL BLOOD GAS PH 7.422 (7.35-7.45); ARTERIAL BLOOD GAS PO2 58.9 mmHg (80-90)
[2018-01-24 11:20] LABS: ABG BASE EXCESS -5.3 mmol/L (-2.0-2.0)
[2018-01-24 12:31] LABS: BILIRUBIN 2+ (NEGATIVE); BLOOD 3+ (NEGATIVE); CLARITY CLOUDY (CLEAR); COLOR YELLOW (YELLOW); GLUCOSE NEGATIVE (NEGATIVE); KETONE TRACE (NEGATIVE); LEUKO ESTERASE 1+ (NEGATIVE); NITRITE POSITIVE (NEGATIVE); SPECIFIC GRAVITY >= 1.030 (1.005-1.030)
[2018-01-24 12:45] LABS: BACTERIA 2+; EPITHELIAL CELLS 30-35; RBC 31-40 rbc/hpf (0-2); WBC 51-100 wbc/hpf (0-5)
[2018-01-24 12:49] VITALS: BP 125/86
[2018-01-24] MEDS ORDERED: STIOLTO RESPIMAT4 GM IH (12:54)
[2018-01-24 13:40] VITALS: BP 138/89
[2018-01-24 16:00] VITALS: BP 139/96
[2018-01-24 16:00] LABS: URINE CHLORIDE, RANDOM < 10 mmol/L
[2018-01-24 20:00] VITALS: BP 150/90
[2018-01-25] VITALS (7 sets, daily range): BP systolic 94–142; BP diastolic 40–104
[2018-01-25 06:22] LABS: BASO # 0.1 10*3/uL (0.0-0.1); EOS # 0.4 10*3/uL (0.0-0.4); EOS % 4.2 % (1.0-4.0); HEMATOCRIT 52.8 % (37.0-47.0); HEMOGLOBIN 16.3 g/dl (12.0-16.0); LYMPH # 3.4 10*3/uL (1.3-4.4); LYMPH % 32.2 % (27.0-41.0); MEAN CELL VOLUME 98.9 fl (81.0-99.0); MEAN CORPUSCULAR HGB 30.5 pg (27.0-31.0); MEAN CORPUSCULAR HGB CONC 30.9 g/dl (33.0-37.0); MEAN PLATELET VOLUME 10.2 fl (9.6-12.3); MONO # 0.4 10*3/uL (0.1-1.0); MONO % 3.9 % (3.0-9.0); NEUT # 6.1 10*3/uL (2.3-7.9); NEUT % 58.3 % (47.0-73.0); PLATELET COUNT AUTOMATED 224 10*3/uL (130-400); RED BLOOD COUNT 5.34 10*6/uL (4.10-5.10); RED CELL DISTRI WIDTH 14.8 % (0-14.5); WHITE BLOOD COUNT 10.5 10*3/uL (4.8-10.8)
[2018-01-25 07:04] LABS: ALBUMIN 3.3 gm/dl (3.1-4.5); CREATININE 2.16 mg/dL (0.55-1.02); FREE T4 1.1 ng/dl (0.76-1.46); PHOSPHOROUS 4.4 mg/dL (2.5-4.9); POTASSIUM 4.7 mmol/L (3.5-5.1); TOTAL PROTEIN 6.9 gm/dL (6.4-8.2)
[2018-01-25 07:09] LABS: THYROID STIM HORMONE (HS) 2.9 uIU/ml (0.358-4.75)
[2018-01-25 08:19] LABS: VITAMIN D, 25-HYDROXY 28.9 ng/mL (30-100)
[2018-01-25 11:42] LABS: ABG BASE EXCESS -14.4 mmol/L (-2.0-2.0); ABG HCO3 11.1 mmol/l (22-26); ABG O2 SATURATION 98.5 % (95-97); ARTERIAL BLOOD GAS PCO2 23.1 mmHg (35-45); ARTERIAL BLOOD GAS PH 7.29 (7.35-7.45)
[2018-01-25 12:03] LABS: BASO # 0.2 10*3/uL (0.0-0.1); BASO % 1.3 % (0.0-1.0); EOS # 0.4 10*3/uL (0.0-0.4); EOS % 3.7 % (1.0-4.0); LYMPH # 4.2 10*3/uL (1.3-4.4); LYMPH % 37.7 % (27.0-41.0); MEAN CELL VOLUME 99.1 fl (81.0-99.0); MEAN CORPUSCULAR HGB 30.6 pg (27.0-31.0); MEAN CORPUSCULAR HGB CONC 30.9 g/dl (33.0-37.0); MEAN PLATELET VOLUME 10.3 fl (9.6-12.3); MONO # 0.4 10*3/uL (0.1-1.0); MONO % 3.8 % (3.0-9.0); NEUT % 53.2 % (47.0-73.0); NUCLEATED RED BLOOD CELL 0.2 % (0.0-0.0); PLATELET COUNT AUTOMATED 230 10*3/uL (130-400); RED BLOOD COUNT 5.55 10*6/uL (4.10-5.10); WHITE BLOOD COUNT 11.3 10*3/uL (4.8-10.8)
[2018-01-25 12:13] LABS: ALBUMIN 3.6 gm/dl (3.1-4.5); CREATININE 2.29 mg/dL (0.55-1.02); TOTAL PROTEIN 8.1 gm/dL (6.4-8.2)
[2018-01-25 13:57] LABS: ABG BASE EXCESS -12.9 mmol/L (-2.0-2.0); ABG HCO3 12.2 mmol/l (22-26); ARTERIAL BLOOD GAS PCO2 26.2 mmHg (35-45); ARTERIAL BLOOD GAS PH 7.287 (7.35-7.45)
[2018-01-26] VITALS: BP 119/80
[2018-01-26 04:00] VITALS: BP 109/76
[2018-01-26 05:51] LABS: BASO # 0.1 10*3/uL (0.0-0.1); BASO % 0.6 % (0.0-1.0); EOS % 0.2 % (1.0-4.0); HEMATOCRIT 53.1 % (37.0-47.0); HEMOGLOBIN 15.7 g/dl (12.0-16.0); LYMPH # 1.6 10*3/uL (1.3-4.4); LYMPH % 12.8 % (27.0-41.0); MEAN CORPUSCULAR HGB 30.5 pg (27.0-31.0); MEAN CORPUSCULAR HGB CONC 29.6 g/dl (33.0-37.0); MEAN PLATELET VOLUME 10.4 fl (9.6-12.3); MONO # 0.4 10*3/uL (0.1-1.0); MONO % 3.6 % (3.0-9.0); NEUT # 10.2 10*3/uL (2.3-7.9); PLATELET COUNT AUTOMATED 238 10*3/uL (130-400); RED BLOOD COUNT 5.14 10*6/uL (4.10-5.10); RED CELL DISTRI WIDTH 15.2 % (0-14.5); WHITE BLOOD COUNT 12.4 10*3/uL (4.8-10.8)
[2018-01-26 05:53] LABS: CREATININE 3.06 mg/dL (0.55-1.02); POTASSIUM 5.6 mmol/L (3.5-5.1)
[2018-01-26 05:56] LABS: MEAN CELL VOLUME 103.3 fl (81.0-99.0)
[2018-01-26 08:00] VITALS: BP 107/76
[2018-01-26 08:59] LABS: INTERNATIONAL NORM RATIO 2.1 (2.0-3.5)
[2018-01-26 12:00] VITALS: BP 91/59
[2018-01-26 15:29] LABS: INTERNATIONAL NORM RATIO 2.4 (2.0-3.5)
[2018-01-26 16:00] VITALS: BP 102/57; BP 80/60
[2018-01-26 20:00] VITALS: BP 86/60
[2018-01-27] VITALS: BP 93/66
[2018-01-27 05:58] LABS: CREATININE 4.59 mg/dL (0.55-1.02); PHOSPHOROUS 8.4 mg/dL (2.5-4.9); POTASSIUM 5.7 mmol/L (3.5-5.1)
[2018-01-27 06:00] LABS: BASO # 0.1 10*3/uL (0.0-0.1); BASO % 0.6 % (0.0-1.0); EOS % 0.3 % (1.0-4.0); HEMATOCRIT 55.9 % (37.0-47.0); HEMOGLOBIN 16.2 g/dl (12.0-16.0); LYMPH # 1.3 10*3/uL (1.3-4.4); LYMPH % 10.1 % (27.0-41.0); MEAN CELL VOLUME 105.9 fl (81.0-99.0); MEAN CORPUSCULAR HGB 30.7 pg (27.0-31.0); MEAN PLATELET VOLUME 10.4 fl (9.6-12.3); MONO # 0.4 10*3/uL (0.1-1.0); MONO % 2.8 % (3.0-9.0); NEUT # 10.7 10*3/uL (2.3-7.9); NEUT % 85.5 % (47.0-73.0); NUCLEATED RED BLOOD CELL 0.1 10*3/uL (0.0-0.0); NUCLEATED RED BLOOD CELL 0.6 % (0.0-0.0); PLATELET COUNT AUTOMATED 260 10*3/uL (130-400); RED BLOOD COUNT 5.28 10*6/uL (4.10-5.10); RED CELL DISTRI WIDTH 15.9 % (0-14.5); WHITE BLOOD COUNT 12.5 10*3/uL (4.8-10.8)
[2018-01-27 08:00] VITALS: BP 130/90
== END 2018-01-27 10:53 | disposition hospice, home (50) | DRG 871 ==
LOC: ED 10:16 → EDHOLD 13:09 → 4E 13:18 → ICCU 01-25 11:12 → 4E 01-26 16:23
PROVIDERS: Internal Medicine; Internal Medicine Critical Care Medicine; Nurse Practitioner Family; Registered Nurse; Student in an Organized Health Care Education/Training Program
PROC: 5A09357 Assistance with Respiratory Ventilation, Less than 24 Consecutive Hours, Continuous Positive Airway Pressure (ICD-10-PCS; principal; 2018-01-25)
PROC: 5A09357 Assistance with Respiratory Ventilation, Less than 24 Consecutive Hours, Continuous Positive Airway Pressure (ICD-10-PCS; 2018-01-26)
DX: A41.9 Sepsis, unspecified organism (principal); J96.21 Acute and chronic respiratory failure with hypoxia; N17.0 Acute kidney failure with tubular necrosis; E11.22 Type 2 diabetes mellitus with diabetic chronic kidney disease; E87.2 Acidosis; E11.65 Type 2 diabetes mellitus with hyperglycemia; D75.1 Secondary polycythemia; J44.1 Chronic obstructive pulmonary disease with (acute) exacerbation; N30.01 Acute cystitis with hematuria; R65.20 Severe sepsis without septic shock; N18.3 Chronic kidney disease, stage 3 (moderate); E87.5 Hyperkalemia; Z66 Do not resuscitate; Z51.5 Encounter for palliative care; I12.9 Hypertensive chronic kidney disease with stage 1 through stage 4 chronic kidney disease, or unspecified chronic kidney disease; F32.9 Major depressive disorder, single episode, unspecified; E80.6 Other disorders of bilirubin metabolism; E78.2 Mixed hyperlipidemia; E86.0 Dehydration; E78.5 Hyperlipidemia, unspecified; Z90.710 Acquired absence of both cervix and uterus; Z83.6 Family history of other diseases of the respiratory system; Z91.041 Radiographic dye allergy status; Z99.81 Dependence on supplemental oxygen; Z91.048 Other nonmedicinal substance allergy status; Z79.899 Other long term (current) drug therapy

== ENCOUNTER 2018-01-27 11:16 | Inpatient (IN) | payer OTHER ==
[~2018-01-27] VITALS: Ht 157.5 cm; Wt 66.7 kg
[~2018-01-27 11:16] MED LIST changes: +STIOLTO RESPIMAT4 GM IH
[2018-01-27 16:00] VITALS: BP 71/37
== END 2018-01-27 21:35 | disposition expired | DRG 871 ==
LOC: 4E 11:16
DX: A41.9 Sepsis, unspecified organism (principal); J96.21 Acute and chronic respiratory failure with hypoxia; N17.0 Acute kidney failure with tubular necrosis; E43 Unspecified severe protein-calorie malnutrition; E87.2 Acidosis; N30.01 Acute cystitis with hematuria; J44.1 Chronic obstructive pulmonary disease with (acute) exacerbation; Z68.44 Body mass index [BMI] 60.0-69.9, adult; R65.20 Severe sepsis without septic shock; E78.2 Mixed hyperlipidemia; N18.3 Chronic kidney disease, stage 3 (moderate); Z51.5 Encounter for palliative care; F32.9 Major depressive disorder, single episode, unspecified; E80.6 Other disorders of bilirubin metabolism; E11.65 Type 2 diabetes mellitus with hyperglycemia; E11.22 Type 2 diabetes mellitus with diabetic chronic kidney disease; K74.60 Unspecified cirrhosis of liver; E78.5 Hyperlipidemia, unspecified; I12.9 Hypertensive chronic kidney disease with stage 1 through stage 4 chronic kidney disease, or unspecified chronic kidney disease; Z99.81 Dependence on supplemental oxygen; Z90.710 Acquired absence of both cervix and uterus; Z83.6 Family history of other diseases of the respiratory system; Z91.041 Radiographic dye allergy status; Z91.048 Other nonmedicinal substance allergy status; Z79.899 Other long term (current) drug therapy